=== PATIENT | female | born 1985 | race Two or more races ===

== ENCOUNTER → 2025-01-31 | Outpatient (CLI) | payer OTHER, SELFPAY ==
--- NOTE | 2025-01-31 13:00 | XR_ITS ---
Examination: Abdomen sonogram, Limited Date and time of exam: January 31, 2025 1244 hours INDICATIONS: History elevated liver enzymes Technique: Real-time garduno scale transabdominal sonographic images of the upper abdomen obtained. Findings: Normal gallbladder Normal common bile duct 0.21 cm Pancreatic head 1.5 cm Liver 15.2 cm fatty infiltration Normal hepatopedal portal venous flow Patent IVC IMPRESSION: Normal gallbladder Normal common bile duct Fatty liver
== END | disposition home or self-care (01) ==
LOC: SDIM 12:25
PROVIDERS: PCP Internal Medicine; Referring Provider Internal Medicine; Visit Provider Internal Medicine
DX: K76.0 Fatty (change of) liver, not elsewhere classified (principal)
CPT/HCPCS: 76705